=== PATIENT | female | born 1995 | race Caucasian/White ===

== ENCOUNTER 2019-07-28 14:08 | Emergency (ER) | payer BC ==
[~2019-07-28] VITALS: Ht 165.1 cm; Wt 81.8 kg
[2019-07-28 14:41] LABS: COLLECTION METHOD CLEAN CATCH
[2019-07-28 14:46] LABS: BASO % 0.1 % (0.0-2.0); EOS % 0.3 % (0-4.0); GRAN # 7.6 (1.4-6.5); GRAN % 80.8 % (42.2-75.2); HEMATOCRIT 43.4 % (37.0-47.0); HEMOGLOBIN 14.5 g/dl (12.5-16.0); LYMPH # 0.9 (1.2-3.4); LYMPH % 9.7 % (20.0-51.0); MEAN CELL VOLUME 87 fl (80.0-100.0); MEAN CORPUSCULAR HEMOGLOBIN 29 pg (27.0-31.0); MEAN CORPUSCULAR HGB CONC 33 g/dl (33.0-37.0); MEAN PLATELET VOLUME 9.9 fl (7.4-10.4); MONO # 0.8 (0.1-0.6); MONO % 8.7 % (1.7-9.3); PLATELET COUNT 299 K/mm3 (130-400); RED BLOOD COUNT 4.99 M/mm3 (4.10-5.30); REDCELL DISTRIBUTION WIDTH-CV 13.3 % (11.5-14.5)
[2019-07-28 14:51] LABS: MUCOUS Present /lpf; PH 5 (5-8); URINE APPEARANCE Clear; URINE BACTERIA Rare /hpf; URINE BILIRUBIN Negative (NEGATIVE); URINE BLOOD Negative (NEGATIVE); URINE COLOR Yellow; URINE GLUCOSE Negative (NEGATIVE); URINE KETONE Negative (NEGATIVE); URINE LEUKOCYTE ESTERASE Negative (NEGATIVE); URINE NITRATE Negative (NEGATIVE); URINE PROTEIN(semi-quant) Negative (NEGATIVE); URINE RBC 0-2 /hpf; URINE UROBILINOGEN Negative (NEGATIVE)
[2019-07-28 14:55] LABS: ALBUMIN 4.9 gm/dL (3.5-5.0); BILIRUBIN,TOTAL 0.8 mg/dL (0.0-1.0); CALCIUM 9.5 mg/dL (8.4-10.2); CREATININE, serum 0.73 (0.52-1.25); POTASSIUM 3.5 mmol/L (3.4-5.0); TOTAL PROTEIN 9.3 gm/dL (6.4-8.2)
[2019-07-28] MEDS ORDERED: PHENERGAN 25 TA25 MG PO (15:41)
[2019-07-28] MEDS ORDERED: VICTOZA6 MG/ML SQ (15:47)
[2019-07-28] MEDS ORDERED: GLUCOPHAGE500 MG/TAB PO (15:47)
[2019-07-28] MEDS ORDERED: WELLBUTRIN SR150 M1 PO (15:47)
[2019-07-28 15:57] VITALS: BP 122/72; PULSE 104; TEMP 98.2
== END 2019-07-28 16:10 | disposition home or self-care (01) ==
LOC: COL.ER 14:08
PROVIDERS: Emergency Medicine
DX: E11.9 Type 2 diabetes mellitus without complications (principal); R19.7 Diarrhea, unspecified; R11.10 Vomiting, unspecified; R11.2 Nausea with vomiting, unspecified; Z79.84 Long term (current) use of oral hypoglycemic drugs
CPT/HCPCS: J0780; J7030

== ENCOUNTER 2022-04-21 12:31 | Emergency (ER) | payer OTHER ==
[~2022-04-21] VITALS: Ht 165.1 cm; Wt 88.6 kg
[~2022-04-21 12:31] MED LIST: GLUCOPHAGE500 MG/TAB PO; PHENERGAN 25 TA25 MG PO; VICTOZA6 MG/ML SQ; WELLBUTRIN SR150 M1 PO
[2022-04-21 12:41] VITALS: TEMP 98.9
[2022-04-21 13:47] LABS: HEMATOCRIT 40.8 % (37.0-47.0); HEMOGLOBIN 14.2 g/dl (12.5-16.0)
[2022-04-21 14:04] LABS: ALBUMIN 4.2 gm/dL (3.5-5.0); CALCIUM 9.7 mg/dL (8.4-10.2); CREATININE, serum 0.74 mg/dL (0.57-1.11); PHOSPHOROUS 2.8 mg/dL (2.3-4.7); POTASSIUM 3.9 mmol/L (3.5-4.5)
[2022-04-21] MEDS ORDERED: XANAX .25M0.25 MG/TA PO (14:54)
[2022-04-21 15:24] VITALS: BP 132/82; PULSE 106
== END 2022-04-21 15:20 | disposition home or self-care (01) ==
LOC: COL.ER 12:31
PROVIDERS: Emergency Medicine
DX: F43.22 Adjustment disorder with anxiety (principal)

== ENCOUNTER 2024-07-01 19:21 | Emergency (ER) | payer OTHER ==
[~2024-07-01] VITALS: Ht 165.1 cm; Wt 84.1 kg
[~2024-07-01 19:21] MED LIST changes: +ATARAX 25MG25 MG/TAB PO; +XANAX .25M0.25 MG/TA PO
[2024-07-01] MEDS ORDERED: Acetaminophen 500 MG TAB PO ONE (20:00)
[2024-07-01 20:25] LABS: BASO % 0.4 % (0.0-2.0); EOS # 0.1 K/mm3 (0.0-0.7); EOS % 1.2 % (0.0-4.0); GRAN # 3.6 K/mm3 (1.4-6.5); GRAN % 53.5 % (42.2-75.2); HEMOGLOBIN 12.6 g/dl (12.5-16.0); LYMPH # 2.5 K/mm3 (1.2-3.4); LYMPH % 37.2 % (20.0-51.0); MEAN CELL VOLUME 91 fl (80.0-100.0); MEAN CORPUSCULAR HEMOGLOBIN 32 pg (27-31); MEAN CORPUSCULAR HGB CONC 35 g/dl (33.0-37.0); MEAN PLATELET VOLUME 9.8 fl (7.4-10.4); MONO # 0.5 K/mm3 (0.1-0.6); MONO % 7.4 % (1.7-9.3); PLATELET COUNT 242 K/mm3 (130-400); RED BLOOD COUNT 3.98 M/mm3 (4.10-5.30); REDCELL DISTRIBUTION WIDTH-CV 12.1 % (11.5-14.5)
[2024-07-01 21:15] VITALS: BP 129/88; PULSE 102; TEMP 99.2
== END 2024-07-01 21:14 | disposition home or self-care (01) ==
LOC: COL.ER 19:21
PROVIDERS: Family Medicine
DX: O99.891 Other specified diseases and conditions complicating pregnancy (principal); R10.30 Lower abdominal pain, unspecified; Z3A.01 Less than 8 weeks gestation of pregnancy